=== PATIENT | male | born 2000 | race Two or more races ===

== ENCOUNTER 2018-12-29 15:48 | Emergency (ER) | payer MEDICAID, OTHER ==
[~2018-12-29] VITALS: Ht 185.4 cm; Wt 69.0 kg
[2018-12-29] MEDS ORDERED: HYDROCODONE/ACETAMINOPHEN 5/325MG TABLET PO ONE (17:30)
[2018-12-29] MEDS ORDERED: ONDANSETRON 4MG ODT PO ONE (17:30)
[2018-12-29 17:40] VITALS: BP 118/57
== END 2018-12-29 18:06 | disposition home or self-care (01) ==
LOC: ER 16:40
DX: S82.831A Other fracture of upper and lower end of right fibula, initial encounter for closed fracture (principal); X50.1XXA Overexertion from prolonged static or awkward postures, initial encounter; Y93.89 Activity, other specified; Y92.89 Other specified places as the place of occurrence of the external cause; Y99.8 Other external cause status
CPT/HCPCS: 29515; 73610; 73630; 99283; Q0162; Z7610